=== PATIENT | female | born 1955 | race Caucasian/White ===

== ENCOUNTER 2018-05-26 19:36 | Emergency (ER) | payer OTHER ==
[~2018-05-26 19:36] MED LIST: VICODIN5-300 PO
[2018-05-26 22:23] LABS: ABSOLUTE BASOPHIL COUNT 0.1 /CUMM (0.0-0.2); ABSOLUTE EOSINOPHIL COUNT 0.1 /CUMM (0.0-0.7); ABSOLUTE GRANULOCYTE CT 7.8 /CUMM (1.4-6.5); ABSOLUTE LYMPH COUNT 3.2 /CUMM (1.2-3.4); ABSOLUTE MONOCYTE COUNT 1.2 /CUMM (0.10-0.60); BASOPHIL % 0.5 % (0.0-2.0); EOSINOPHIL % 0.5 % (0-5); GRANULOCYTE % 63.3 % (42.2-75.2); MEAN CORPUSCULAR HGB 28.4 PG (27.0-31.0); MEAN CORPUSCULAR HGB CONC 33.3 G/DL (33.0-37.0); MEAN CORPUSCULAR VOLUME 85.2 FL (81.0-99.0); MEAN PLATELET VOLUME 8.5 FL (7.4-10.4); PLATELET COUNT 274 /CUMM (130-400); RBC DISTRIBUTION WIDTH 13.8 % (11.5-14.5); RED BLOOD CELL CT 4.46 /CUMM (4.20-5.40); WHITE BLOOD CELL COUNT 12.3 /CUMM (4.8-10.8)
[2018-05-26] MEDS ORDERED: NAPROSYN500 M1 PO (23:06)
[2018-05-26] MEDS ORDERED: PYRIDIUM100 M1 PO (23:06)
[2018-05-26] MEDS ORDERED: KEFLEX500 M1 PO (23:06)
--- NOTE | 2018-05-26 23:07 | ED GENERAL ADULT ---
History of Present Illness General Chief Complaint: Low Back Pain/Injury Stated Complaint: LOW BACK PAIN Source: patient, family Exam Limitations: language barrier Vital Signs & Intake/Output Vital Signs & Intake/Output Vital Signs Date Time Temp Pulse Resp B/P B/P Pulse O2 O2 Flow FiO2 Mean Ox Delivery Rate 05/26 2308 98.6 87 18 149/85 99 Room Air 05/268 97 Room Air 05/26 1946 98.7 88 19 151/90 97 Room Air Allergies Coded Allergies: No Known Allergies (05/26/18) Reconcile Medications Cephalexin (Keflex) 500 MG CAPSULE 1 CAP PO BID UTI HYDROCODONE/ACETAMINOPHEN (Hydrocodon-Acetaminophen 5-325) 1 TAB TAB 1 TAB PO TID PRN PAIN Naproxen (Naprosyn) 500 MG TABLET 1 TAB PO BID PRN pain Phenazopyridine HCl (Pyridium) 100 MG TABLET 1 TAB PO TID UTI Triage Note: PT TO ED WITH C/O LEFT LOWER BACK PAIN BEGINNING YESTERDAY. DENIES INJURY OR STRAIN. DENIES URINARY SYMPTOMS. ABLE TO AMBULATE. DENIES N/V. TRIED ADVIL W/O RELIEF. Triage Nurses Notes Reviewed? yes Onset: Gradual Duration: day(s): Timing: constant HPI: 63-year-old female with no known past medical history presenting with suprapubic discomfort, lower back pain, dysuria, and urinary urgency/frequency since yesterday. Denies fevers, nausea, vomiting, hematuria. (Aziza Haile) Past History Travel History Traveled to [place] past 21 day No Medical History Any Pertinent Medical History? none Surgical History Surgical History: non-contributory Psychosocial History What is your primary language [facility] Tobacco Use: Never used Family History Hx Contributory? No (Aziza Haile) Review of Systems Review of Systems Constitutional: Reports: no symptoms. EENTM: Reports: no symptoms. Respiratory: Reports: no symptoms. Cardiovascular: Reports: no symptoms. GI: Reports: no symptoms. Genitourinary: Reports: see HPI. Musculoskeletal: Reports: see HPI. Skin: Reports: no symptoms. Neurological/Psychological: Reports: no symptoms. Hematologic/Endocrine: Reports: no symptoms. Immunologic/Allergic: Reports: no symptoms. All Other Systems: Reviewed and Negative (Aziza Haile) Physical Exam Physical Exam General Appearance: well developed/nourished, no apparent distress, alert, awake Comments: Gen.: Well-nourished, well-developed, no acute distress. Head: Normocephalic, atraumatic. Eyes: Normal inspection bilaterally Ears: Normal inspection bilaterally Nose: Normal inspection Neck: Normal inspection Lungs: clear to auscultation bilaterally, normnal breath sounds Heart: regular rate and rhythm Abdomen: soft and non-tender Back: No CVA tenderness, no reproducible tenderness to palpation, normal inspection, unrestricted spinal range of motion Extremities: Normal inspection Neurologic: alert and oriented x3, steady gait Skin: warm and dry Psychiatric: Normal mood and affect, no apparent delusions or hallucinations, behavior appropriate Core Measures ACS in differential dx? No CVA/TIA Diagnosis: No Sepsis Present: No Sepsis Focused Exam Completed? No (Gustabo SOOD,Aziza) Progress Differential Diagnoses I considered the following diagnoses in my evaluation of the patient: [MSK strain versus UTI versus pyelonephritis] Plan of Care: Orders Procedure Date/time Status Add-on Test (ER Only) 05/26 2205 Active CBC WITHOUT DIFFERENTIAL 05/26 2204 Complete BASIC METABOLIC PANEL 05/26 2204 Complete CULTURE,URINE 05/26 2001 Active URINALYSIS 05/26 1949 Complete Laboratory Tests 05/26/182216: Anion Gap 8, Estimated GFR > 60, BUN/Creatinine Ratio 37.5 H, Glucose 95, Calcium 9.6, CBC w Diff NO MAN DIFF REQ, RBC 4.46, MCV 85.2, MCH 28.4, MCHC 33.3 , RDW 13.8, MPV 8.5, Gran % 63.3, Lymphocytes % 26.2, Monocytes % 9.5 H, Eosinophils % 0.5, Basophils % 0.5, Absolute Granulocytes 7.8 H, Absolute Lymphocytes 3.2, Absolute Monocytes 1.2 H, Absolute Eosinophils 0.1, Absolute Basophils 0.1 05/26/182000: Urine Color YEL, Urine Clarity CLDY H, Urine pH 6.5, Ur Specific [place] 1.010, Urine Protein NEG, Urine Ketones NEG, Urine Nitrite NEG, Urine Bilirubin NEG, Urine Urobilinogen 0.2, Ur Leukocyte Esterase LARGE H, Ur Microscopic SEDIMENT EXAMINED, Urine RBC RARE, Urine WBC > 75 H, Ur Epithelial Cells FEW, Urine Bacteria FEW H, Urine Mucus FEW, Urine Hemoglobin TRACE-INTACT, Urine Glucose NEG Microbiology 05/26 2001 URINE ROUT: Urine Culture - RECD UA highly suspicious for infection, urine culture sent, will cover with Keflex. Given Pyridium and naproxen for pain. Labs show mild leukocytosis of 12, renal function is within normal limits. Low concern for systemic disease as patient has been afebrile with no CVA tenderness. Counseled on supportive care and strict return precautions. She will follow-up with her PMD for reevaluation. Initial ED EKG: none (Aziza Haile) Departure Departure Disposition: HOME OR SELF CARE Condition: Stable Clinical Impression Primary Impression: UTI (urinary tract infection) Referrals: Joe LAMB,Bonnie (PCP/Family) Additional Instructions: Take Keflex and Pyridium as prescribed. Use naproxen as needed for pain. Follow-up with your primary care provider for reevaluation. Return to the emergency department for any new or worsening symptoms. Departure Forms: Customer Survey General Discharge Information Prescriptions: Current Visit Scripts Cephalexin (Keflex) 1 CAP PO BID #20 CAP Phenazopyridine HCl (Pyridium) 1 TAB PO TID #6 TAB Naproxen (Naprosyn) 1 TAB PO BID PRN pain #60 TAB (Aziza Haile) PA/REPORT ANALYST Co-Sign Statement Statement: ED Attending supervision documentation- [] I saw and evaluated the patient. I have also reviewed all the pertinent lab results and diagnostic results. I agree with the findings and the plan of care as documented in the PA's/REPORT ANALYST's documentation. [x] I have reviewed the ED Record and agree with the PA's/REPORT ANALYST's documentation. [] Additions or exceptions (if any) to the PAs/REPORT ANALYST's note and plan are summarized below: [] (Severo Robertson DO) Critical Care Note Critical Care Note Critical Care Time: non-applicable (Aziza Haile)
[2018-05-26 23:08] VITALS: BP 149/85
== END 2018-05-26 23:10 ==
LOC: ERH 19:36
PROVIDERS: Physician Assistant
DX: N39.0 Urinary tract infection, site not specified (principal)
CPT/HCPCS: 81001; 87086